=== PATIENT | male | born 1970 | race Caucasian/White ===

== ENCOUNTER 2020-07-13 13:10 | Emergency (ER) | payer OTHER ==
[~2020-07-13] VITALS: Ht 175.3 cm; Wt 93.1 kg
[~2020-07-13 13:10] MED LIST: ASPI-630 PO; FEXO1TAB27 PO
[2020-07-13] MEDS ORDERED: oxyCODONE/APAP 5/325 1 TAB TABLET PO ONE (13:30)
--- NOTE | 2020-07-13 13:35 | PHYS DOC ---
Past Medical History Smoking Status: Never Smoker Adult General Chief Complaint Chief Complaint: ANKLE PROBLEM HPI HPI Patient is a 49 year old male past medical history of factor V Leiden disorder presents emergency department for left-sided ankle pain after a fall. Patient states he was jumped on by his dog treated by the leg and causing him to have an eversion injury to left ankle. States he felt a popping sensation since that time and had been unable to ambulate on the left ankle since that time. Denies any head injury or loss of consciousness Review of Systems Review of Systems Constitutional: Denies fever or chills [] Eyes: Denies change in visual acuity, redness, or eye pain [] HENT: Denies nasal congestion or sore throat [] Respiratory: Denies cough or shortness of breath [] Cardiovascular: No additional information not addressed in HPI [] GI: Denies abdominal pain, nausea, vomiting, bloody stools or diarrhea [] : Denies dysuria or hematuria [] Musculoskeletal: Denies back pain or joint pain [] Integument: Denies rash or skin lesions [] Neurologic: Denies headache, focal weakness or sensory changes [] Endocrine: Denies polyuria or polydipsia [] All other systems were reviewed and found to be within normal limits, except as documented in this note. Current Medications Current Medications Current Medications Medications (Trade) Dose Ordered Sig/Ludy Start Time Stop Time Status Last Admin Dose Admin Oxycodone/ Acetaminophen (Percocet 5/325) 1 tab 1X ONCE 07/13/20 13:30 07/13/20 13:35 DC 07/13/20 13:46 1 TAB Allergies Allergies Allergies Coded Allergies Type Severity Reaction Last Updated Verified No Known Drug Allergies 11/26/15 No Physical Exam Physical Exam Constitutional: Well developed, well nourished, no acute distress, non-toxic appearance. [] HENT: Normocephalic, atraumatic, bilateral external ears normal, oropharynx moist, no oral exudates, nose normal. [] Eyes: PERRLA, EOMI, conjunctiva normal, no discharge. [] Neck: Normal range of motion, no tenderness, supple, no stridor. [] Cardiovascular:Heart rate regular rhythm, no murmur [] Lungs & Thorax: Bilateral breath sounds clear to auscultation [] Abdomen: Bowel sounds normal, soft, no tenderness, no masses, no pulsatile masses. [] Skin: Warm, dry, no erythema, no rash. [] Back: No tenderness, no CVA tenderness. [] Extremities: no cyanosis, no clubbing, ROM intact. Normal bilateral malleolar tenderness in the left foot with significant edema and mild skin discoloration Neurologic: Alert and oriented X 3, normal motor function, normal sensory function, no focal deficits noted. [] Psychologic: Affect normal, judgement normal, mood normal. [] Current Patient Data Vital Signs Vital Signs Date Time Temp Pulse Resp B/P (MAP) Pulse Ox O2 Delivery O2 Flow Rate FiO2 07/13/20 13:46 18 99 Room Air 07/13/20 13:25 99.0 91 179/92 (121) 99.0 EKG EKG [] Radiology/Procedures Radiology/Procedures [] Course & Med Decision Making Course & Med Decision Making Pertinent Labs and Imaging studies reviewed. (See chart for details) 49M presenting after significant injury to the left ankle with prominent swelling and tenderness in bilateral malleoli. Will provide pain control and obtain an x-ray. 14:03 -x-ray demonstrating significant bilateral malleolar fracture on the left. I spoke to Dr. Becerra who agrees with splinting, casting and follow up in the office. Dragon Disclaimer Dragon Disclaimer This electronic medical record was generated, in whole or in part, using a voice recognition dictation system. Departure Departure Impression: Primary Impression: Bimalleolar fracture of left ankle Disposition: 01 DC HOME SELF CARE/HOMELESS Condition: GOOD Referrals: SANG TALAMANTES M.D. (PCP) Patient Instructions: Ankle Fracture Additional Instructions: EMERGENCY DEPARTMENT GENERAL DISCHARGE INSTRUCTIONS Thank you for coming to [facility] Emergency Department (ED) today and trusting us with you care. We trust that you had a positive experience in our Emergency Department. If you wish to speak to the department management, you may call the Director at [phone]. YOUR FOLLOW UP INSTRUCTIONS ARE FOLLOWS: 1. Do you have a private Doctor? If you do not have a private doctor, please ask for a resource list of physicians or clinics that may be able to assist you with fol low up care. 2. The Emergency Physicain has interpreted your x-rays. The X-Ray specialist will also review them. If there is a change in the findings, you will be notified in 48 hours when at all possible. 3. A lab test or culture has been done, your results will be reviewed and you will be notified if you need a change in treatment. ADDITIONAL INSTRUCTIONS AND INFORMATION: 1. Your care today has been supervised by a physician who is specially trained in emergency care. Many problems require more than one evaluation for a complete diagnosis and treatment. We recommend that you schedule your follow up appointment as r ecommended to ensure complete treatment of you illness or injury. If you are unable to obtain follow up care and continue to have a problem, or if your condition worsens, we recommend that you return to the ED. 2. We are not able to safely determine your condition over the phone nor are we able to give sound medical advice over the phone. For these safety reasons, if you call for medical advice we will ask you to come to the ED for further evaluation. 3. If you have any questions regarding these discharge instructions please call the ED at [phone]. SAFETY INFORMATION: In the interest of safety, wellness, and injury prevention; we encourage you to wear your sealbelt, if you smoke; quite smoking, and we encourage family to use a protective helmet for bicycling and other sporting events that present an increased risk for head injury. IF YOUR SYMPTOMS WORSEN OR NEW SYMPTOMS DEVELOP, OR YOU HAVE CONCERNS ABOUT YOUR CONDITION; OR IF YOUR CONDITION WORSENS WHILE YOU ARE WAITING FOR YOUR FOLLOW UP APPOINTMENT; EITHER CONTACT YOUR PRIMARY CARE DOCTOR, THE PHYSICIAN WHOSE NAME AND NUMBER YOU WERE GIVEN, OR RETURN TO THE ED IMMEDIATELY. Scripts Oxycodone Hcl/Acetaminophen (ENDOCET 5-325 TABLET) 1 Each Tablet 1 TAB PO PRN TID PRN for PAIN MDD 3 Tablet(s) for 30 Days, #15 TAB 0 Refills Prov: JEFF EDDY MD 07/13/20 JEFF EDDY MD Jul 13, 2020 13:34
--- NOTE | 2020-07-13 13:54 | RAD ---
Left ankle 3 views INDICATION: Fall COMPARISON: None. FINDINGS: AP, lateral and oblique views of the left ankle show an acute avulsion fracture of the medial malleol us tip, and a spiral fracture of the distal fibula at the level of the tibial plafond and extending p roximally with mild apex dorsal angulation. There is mild medial widening of the ankle mortise. Diffu se soft tissue swelling of the left ankle is also present. IMPRESSION: Acute bimalleolar left ankle fractures of the medial and lateral malleoli, with [place] type B morphol ogy at the lateral ankle. Electronically signed by: Zaina Rider MD (07/13/2020 1:51 PM) [facility] [place]
[2020-07-13] MEDS ORDERED: OXYC-314 PO (14:37)
[2020-07-13 15:30] VITALS: BP 132/81
== END 2020-07-13 15:30 | disposition home or self-care (01) ==
LOC: ER 13:10
DX: S82.842A Displaced bimalleolar fracture of left lower leg, initial encounter for closed fracture (principal); R20.2 Paresthesia of skin; R60.0 Localized edema; W18.39XA Other fall on same level, initial encounter; Y93.39 Activity, other involving climbing, rappelling and jumping off; Y92.89 Other specified places as the place of occurrence of the external cause; Y99.8 Other external cause status
CPT/HCPCS: 29515; 73610; 99284

== ENCOUNTER → 2020-07-17 | Outpatient (CLI) | payer OTHER ==
[2020-07-13 15:30] VITALS: BP 132/81
[~2020-07-17] MED LIST changes: +CETI10TA74 PO; +OXYC-314 PO
== END ==
LOC: LAB 10:18
PROVIDERS: ATTEND Orthopaedic Surgery
DX: Z01.812 Encounter for preprocedural laboratory examination (principal); S82.92XA Unspecified fracture of left lower leg, initial encounter for closed fracture; Z20.828 Contact with and (suspected) exposure to other viral communicable diseases; X58.XXXA Exposure to other specified factors, initial encounter; Y93.89 Activity, other specified; Y92.89 Other specified places as the place of occurrence of the external cause; Y99.8 Other external cause status
CPT/HCPCS: U0003

== ENCOUNTER 2020-07-19 10:24 | Day surgery (SDC) | payer OTHER ==
[~2020-07-19] VITALS: Ht 172.7 cm; Wt 93.4 kg
[~2020-07-19 10:24] MED LIST changes: +HYDROmorphone 2 MG/ML VIAL IVP PRN; +IV RINGERS,LACTATED 1000ML 1,000 ML IV SCH; +PROCHLORPERAZINE 10 MG/2 ML VIAL. IVP PRN; +fentaNYL PF VIAL 100 MCG/2 ML VIAL IVP PRN
[2020-07-19] MEDS ORDERED: BUPIVACAINE-EPI 0.25% 30 ML VIAL KIT. ONE ×2 (12:21)
[2020-07-19] MEDS ORDERED: fentaNYL PF VIAL 100 MCG/2 ML VIAL ONE ×2 (12:37→14:30)
[2020-07-19] MEDS ORDERED: LIDOCAINE 2% PF 5 ML VIAL. ONE (12:37)
[2020-07-19] MEDS ORDERED: PROPOFOL 10 MG/ML (20ML) VIAL. IV ONE (12:37)
[2020-07-19] MEDS ORDERED: DEXAMETHASONE SOD PHOS 4 MG/ML VIAL ONE (13:40)
[2020-07-19] MEDS ORDERED: ONDANSETRON PF 4 MG/2 ML VIAL. ONE (13:40)
[2020-07-19] MEDS ORDERED: SEVOFLURANE 61 TO 120 MINUTES. IH ONE (13:40)
[2020-07-19] MEDS ORDERED: KETOROLAC 30 MG/ML VIAL. ONE (14:22)
[2020-07-19] MEDS ORDERED: MORPHINE SULFATE 2 MG/ML VIAL. ONE ×2 (14:40→15:27)
--- NOTE | 2020-07-19 14:43 | PDOC4 ---
Operative Note Operative Note Date of Procedure: July 19, 2020 Pre-Op Diagnosis: Displaced fracture of lateral malleolus of left fibula, initial encounter for closed fracture - S82.62XA Post-Op Diagnosis: same Procedure: left ankle open treatment of distal fibular fracture (lateral malleolus) with internal fixation CPT 28803 Anesthesia Type: General Surgeon: Sang Becerra MD Acute Care Physical Therapist: MAXIME Ruth EBL: 50 mL Specimens Obtained: none Drains: none Complications: none Tourniquet time: 19 minutes Tourniquet pressure: 300 mm Hg Implants: Synthes stainless small fragment 3.5 mm INDICATIONS FOR PROCEDURE: The patient is a 49-year-old with a displaced unstable left ankle fracture. The patient and I discussed the risks and benefits of operative treatment. Surgical fixation likely will give a better long-term outcome. We talked about the risks of the operative fixation such as the risks of bleeding, infection, blood clots, need for hardware removal, stiffness or other potential surgical or anesthetic complications. All of her questions about surgery were answered and she desired to proceed. Written consent was obtained. PROCEDURE IN DETAIL: The patient was identified in the preoperative holding area. The correct left lower extremity was marked by me. The patient was taken to the operating room, where a general anesthetic was used. Preoperative antibiotics were given intravenously. A timeout procedure was performed. A padded tourniquet was used on the upper left thigh. A bump was placed under the left buttock. The limb was prepared in sterile fashion with ChloraPrep solution, and sterile drapes were applied with a sterile glove over the toes and heel. An Esmarch bandage was used to exsanguinate the limb and the tourniquet was inflated. The direct lateral approach to the distal fibula was used. Sharp dissection was used and Bovie electrocautery was used as needed for hemostasis. The fracture was easily identified and exposed. The fracture was gapped open with traction, and fracture hematoma was cleared with curettes, rongeurs and irrigation. I then used longitudinal traction and internal rotation to help reduce the fracture, and a lobster claw bone clamp was used to now reduce the fracture. An interfragmentary lag screw was placed using a threaded hole and a gliding hole, across the fracture site to partially stabilize it, so that the bone clamp could be removed. I applied a 3.5 mm one-third tubular plate laterally, and conto ured the distal portion of the plate with a plate kaplan. Cortical screws were placed initially to stabilize the plate and compress it to the bone and help maintain the reduction. Locking screws were then placed in distal fragment, and the bone clamps were able to be removed. Satisfactory reduction and fixation was obtained of the fibula which was confirmed using the image intensifier. I now stressed the syndesmosis and the medial clear space was stable. The tourniquet was released. Copious saline irrigation was used. Bovie electrocautery was used for hemostasis. Local anesthetic, 30 mL of 0.25% bupivacaine with epinephrine with epinephrine was injected into the skin edges. Needle and sponge counts were correct. The incision was closed in layers. I used #2-0 Vicryl in the subcutaneous tissues, and troy in the skin. Xeroform and a sterile dressing and splint were applied. There were no apparent complications. SANG BECERRA MD Jul 19, 2020 14:43
[2020-07-19] MEDS: MORPHINE SULFATE 2 MG/ML VIAL. IVP PRN ×4 (15:02→15:53)
[2020-07-19 16:02] VITALS: BP 144/101
[2020-07-19] MEDS ORDERED: oxyCODONE/APAP 5/325 1 TAB TABLET PO ONE (16:30)
== END 2020-07-19 16:54 | disposition home or self-care (01) ==
LOC: SURG 10:24
PROVIDERS: ATTEND Orthopaedic Surgery
DX: S82.62XA Displaced fracture of lateral malleolus of left fibula, initial encounter for closed fracture (principal); Z79.899 Other long term (current) drug therapy; Z98.890 Other specified postprocedural states; Z72.89 Other problems related to lifestyle; Z87.891 Personal history of nicotine dependence; Z82.49 Family history of ischemic heart disease and other diseases of the circulatory system; X58.XXXA Exposure to other specified factors, initial encounter; Y93.89 Activity, other specified; Y92.89 Other specified places as the place of occurrence of the external cause; Y99.8 Other external cause status
CPT/HCPCS: 27792; C1713; J0690; J1100; J1885; J2270; J2405; J2704; J3010